=== PATIENT | female | born 1970 | race Caucasian/White ===

== ENCOUNTER 2023-09-26 09:40 | Day surgery (SDC) | payer BC, OTHER ==
[2023-09-26] MEDS: Lactated Ringers 1,000 ML IV SCH (10:27)
[2023-09-26] MEDS ORDERED: Propofol 200 MG/20 ML SDV ONE ×2 (12:56→14:06)
[2023-09-26] MEDS ORDERED: fentaNYL 100 MCG/2 ML SDV ONE (12:57)
== END 2023-09-26 15:20 | disposition home or self-care (01) ==
LOC: VM.SDS 09:40
PROVIDERS: ATTEND Family Medicine
DX: Z12.11 Encounter for screening for malignant neoplasm of colon (principal); D12.6 Benign neoplasm of colon, unspecified; K57.30 Diverticulosis of large intestine without perforation or abscess without bleeding; E78.00 Pure hypercholesterolemia, unspecified; L40.9 Psoriasis, unspecified; E66.9 Obesity, unspecified; Z68.29 Body mass index [BMI] 29.0-29.9, adult; Z79.899 Other long term (current) drug therapy; Z88.5 Allergy status to narcotic agent
CPT/HCPCS: 00811; 45385; J2704; J3010; J7120